=== PATIENT | male | born 1960 | race Caucasian/White ===

== ENCOUNTER 2022-01-12 12:15 | Emergency (ER) | payer MEDICARE, SELFPAY ==
--- NOTE | ~2022-01-12 | XR_ITS ---
EXAMINATION: XR CHEST CLINICAL INFORMATION: Dyspnea COMPARISON: None TECHNIQUE: Frontal view of the chest was obtained. FINDINGS: The cardiac and mediastinal contours are normal. There is subsegmental atelectasis at the left lung base. The lungs are otherwise clear. There is no pleural effusion or pneumothorax. There are degenerative changes of the spine. XR/XR chest 1V IMPRESSION: Subsegmental atelectasis at the left lung base.
[2022-01-12 12:20] VITALS: BP 117/66; PULSE 62; RESP 20; TEMP 36.7; O2SAT 94; BMI 39.5
--- NOTE | 2022-01-12 12:23 | ECG_ITS ---
Test Reason : SOB Blood Pressure : / mmHG Vent. Rate : 061 BPM Atrial Rate : 061 BPM P-R Int : 158 ms QRS Dur : 086 ms QT Int : 430 ms P-R-T Axes : 052 -20 028 degrees QTc Int : 432 ms Normal sinus rhythm Normal ECG When compared with ECG of 15-DEC-2018 10:06, ST no longer depressed in Anterior leads Nonspecific T wave abnormality no longer evident in Anterior leads Referred By: Generic ED Physician Electronically Signed By:HOMERO ALEJO MD
[2022-01-12 12:54] LABS: MANUAL DIFF FLAG NO
[2022-01-12 12:56] LABS: Basophils Percent Auto 0.4 % (0-2); Eosinophils Absolute Auto 0.3 X10*3/uL (0.0-0.4); Eosinophils Percent Auto 4.9 % (0-4); Hematocrit 36.9 % (42.0-52.0); Hemoglobin 12.4 g/dl (14.0-18.0); Imm Gran Abs Auto 0.02 X10*3/uL (0.00-0.03); Imm Gran Pct Auto 0.3 % (0.0-0.4); Lymphocytes Absolute Auto 0.9 X10*3/uL (1.2-4.9); Lymphocytes Percent Auto 13.3 % (20-40); Mean Corpuscular HGB Conc 33.6 g/dl (31.0-36.0); Mean Corpuscular Volume 95.1 fL (80.0-98.0); Mean Platelet Volume 8.3 fL (9.4-12.4); Monocytes Absolute Auto 0.7 X10*3/uL (0.1-1.2); Monocytes Percent Auto 9.9 % (2-11); Neutrophils Percent Auto 71.2 % (45-73); Platelet Count 218 X10*3/uL (160-400); Red Blood Count 3.88 X10*6/uL (4.60-5.80); Red Cell Distribution Width 13.2 % (11.0-16.0)
[2022-01-12 13:10] LABS: Anion Gap 17 (12-20); Blood Urea Nitrogen 20 mg/dL (9-16); Calcium 8.8 mg/dL (8.4-10.2); Carbon Dioxide 26 mmol/L (22-29); Chloride 101 mmol/L (96-108); Creatinine Clr Calc Pharmacy 60.6; Estimated Glomerular Filt Rate 38; Glucose Random 111 mg/dL (60-115); Potassium 4.5 mmol/L (3.3-5.1); Sodium 139 mmol/L (135-145)
[2022-01-12 13:18] LABS: B Type Natriuretic Peptide 10 pg/mL (<100); Troponin-I High Sensitivity < 3.5 ng/L (<3.5-35.0)
[2022-01-12 13:31] VITALS: BP 104/76; PULSE 60; RESP 18; TEMP 36.6; O2SAT 94
[2022-01-12 21:12] VITALS: BP 138/75; PULSE 63; RESP 18; TEMP 36.7; O2SAT 96
== END 2022-01-12 21:55 | disposition left against medical advice (07) ==
PROVIDERS: Emergency Provider Emergency Medicine
DX: R06.02 Shortness of breath (principal); R07.89 Other chest pain; Z79.899 Other long term (current) drug therapy
CPT/HCPCS: 36415; 71045; 80048; 83880; 84484; 85025; 93005; 99283; 99284

== ENCOUNTER 2022-01-12 13:00 | Outpatient (REF) | payer MEDICARE, SELFPAY | END 2022-01-12 13:01 | disposition home or self-care (01) | LOC: HO.HOSX 13:00 | PROVIDERS: Visit Provider Orthopaedic Surgery | DX: Z13.89 Encounter for screening for other disorder (principal) ==

== ENCOUNTER 2022-01-15 | Outpatient (REF) | payer OTHER, SELFPAY ==
--- NOTE | ~2022-01-15 | XR_ITS ---
EXAMINATION: KNEE X-RAY CLINICAL INFORMATION: Pain COMPARISON: Previous x-ray most recent March 2019 TECHNIQUE: Standing AP view of both knees and lateral and sunrise view of the right knee FINDINGS: Right: There has been revision of the right knee replacement. No fracture, dislocation or x-ray evidence of loosening is seen. There is increased cortical thickening or periosteal reaction adjacent to the anterior distal femoral shaft. There is no significant joint effusion. Standing AP view of the left knee demonstrates varus angulation and arthritis at the medial femoral tibial joint. XR/XR knee standing BI IMPRESSION: Right: New knee replacement. New periosteal reaction or cortical thickening of the anterior distal femoral shaft. Left: Varus angulation and arthritis at the medial femoral tibial joint.
--- NOTE | ~2022-01-15 | XR_ITS ---
EXAMINATION: KNEE X-RAY CLINICAL INFORMATION: Pain COMPARISON: Previous x-ray most recent March 2019 TECHNIQUE: Standing AP view of both knees and lateral and sunrise view of the right knee FINDINGS: Right: There has been revision of the right knee replacement. No fracture, dislocation or x-ray evidence of loosening is seen. There is increased cortical thickening or periosteal reaction adjacent to the anterior distal femoral shaft. There is no significant joint effusion. Standing AP view of the left knee demonstrates varus angulation and arthritis at the medial femoral tibial joint. XR/XR knee RT 2V IMPRESSION: Right: New knee replacement. New periosteal reaction or cortical thickening of the anterior distal femoral shaft. Left: Varus angulation and arthritis at the medial femoral tibial joint.
== END 2022-01-15 00:01 | disposition home or self-care (01) ==
LOC: HO.HOSX
PROVIDERS: Visit Provider Orthopaedic Surgery
DX: M25.561 Pain in right knee (principal)
CPT/HCPCS: 73560; 73565

== ENCOUNTER → 2022-01-26 13:07 | Outpatient (BNVA) | payer OTHER, SELFPAY | PROVIDERS: PCP Nurse Practitioner Family; Visit Provider Nurse Practitioner Psychiatric/Mental Health | DX: F11.20 Opioid dependence, uncomplicated (principal); Z51.81 Encounter for therapeutic drug level monitoring; Z79.899 Other long term (current) drug therapy | CPT/HCPCS: 80305 ==

== ENCOUNTER → 2022-02-02 12:59 | Outpatient (BNVA) | payer MEDICARE, SELFPAY | PROVIDERS: PCP Nurse Practitioner Family; Visit Provider Nurse Practitioner Psychiatric/Mental Health | DX: F11.20 Opioid dependence, uncomplicated (principal); Z51.81 Encounter for therapeutic drug level monitoring | CPT/HCPCS: 80305; 99212 ==

== ENCOUNTER 2022-02-08 06:04 | Outpatient (REF) | payer MEDICARE, SELFPAY ==
--- NOTE | ~2022-02-08 | XR_ITS ---
EXAMINATION: XR SHOULDER, RIGHT CLINICAL INFORMATION: Right shoulder pain. COMPARISON: None TECHNIQUE: Three views of the right shoulder. FINDINGS: Mild degenerative joint changes are seen. There is no acute fracture or dislocation. The right ribs are intact. The soft tissues are unremarkable. XR/XR shoulder RT min 2V IMPRESSION: Mild right shoulder degenerative joint changes. No acute abnormality.
== END 2022-02-08 06:05 | disposition home or self-care (01) ==
LOC: HO.HOSX 06:04
PROVIDERS: Visit Provider Physician Assistant
DX: M25.511 Pain in right shoulder (principal)
CPT/HCPCS: 20610; 73030; 99212; J1100

== ENCOUNTER → 2022-02-12 10:10 | Outpatient (BNVA) | payer MEDICARE, SELFPAY | PROVIDERS: PCP Nurse Practitioner Family; Visit Provider Internal Medicine Cardiovascular Disease | DX: I50.9 Heart failure, unspecified (principal); I48.0 Paroxysmal atrial fibrillation; R06.09 Other forms of dyspnea | CPT/HCPCS: 99202 ==

== ENCOUNTER → 2022-02-16 08:19 | Outpatient (REF) | payer MEDICARE, SELFPAY ==
--- NOTE | 2022-02-16 08:21 | CA_ITS ---
Transthoracic Echocardiogram Patient (Last, First, Middle): Yves Lowe F Gender: Male Date of : 1960 Age: 61 Procedure Date: 02/16/2022 Procedure Type: Transthoracic Echocardiogram Location: OP Height: 185.42 cm Weight: 139.26 kg BSA: 2.58 m2 Heart Rate: bpm BP: 118 / 62 mmHg Senior Materials Planner: TO Referring MD: Marco Wagner MD Varnish Dipper: Marco Wagner MD Symptoms: I50.9 - Heart failure, unspecified Study Quality: Technically Difficult/Contrast ECG Rhythm: Sinus Conclusions: - Essentially normal study Findings Procedure Information Contrast agent, definity, is being given per protocol without apparent complications. The quality of the study was technically difficult. Left Ventricle Normal left ventricular size, thickness, and systolic function. The visually estimated ejection fraction is between 60-65%. Spectral Doppler is indicative of a normal filling pattern. Right Ventricle Normal right ventricular cavity size. There is normal right ventricular systolic function. Atria Both atria are normal in size. Aortic Valve Normal aortic valve structure and function. There is no aortic valve stenosis. There is no aortic valve regurgitation. Mitral Valve Normal mitral valve structure and function. There is trace mitral valve regurgitation. There is no mitral valve stenosis. Pulmonic Valve The pulmonic valve was not well visualized. Tricuspid Valve Likely normal tricuspid valve structure and function. There is trace tricuspid valve regurgitation. The right ventricular systolic pressure is 35 mmHg. There is no evidence of pulmonary hypertension. Great Vessels All visible segments of the aorta are normal in size. The pulmonary artery was not well visualized. Venous The inferior vena cava is normal in size and collapses greater than 50% with inspiration. Pericardium/Pleural There is no evidence of pericardial effusion. Prior Study Comparison No prior study available for comparison. Measurements 2D Linear Measurements LVOT Diam: 2.40 3.0+(-)1.3 cm 2D Systolic Function EF 4C: 60.90 >55% EF 2C: 64.70 >55% EF BiP: 63.70 >55% Mitral Valve MV Pk E: 0.83 MV PK A: 0.62 MV Decel Time: 293.00 E/A: 1.30 E'Lateral: 12.60 E'Medial: 11.00 E/E' Med: 7.50 E/E' Lat: 6.60 PHT: 86.00 MVA PHT: 2.56 Decel Adams: 2.82 Aortic Valve AoV Pk Andi: 1.52 AoV Mn Andi: 1.11 AoV VTI: 0.33 AoV Pk Grad: 9.00 Aov Mn Grad: 5.00 ELIZABETH Cont.VTI: 4.13 LVOT LVOT Pk Andi: 1.26 LVOT Mn Andi: 0.83 LVOT VTI: 0.30 LVOT Pk Grad: 6.00 LVOT Mn Grad: 3.00 LVOT Diam: 2.40 LVOT Area: 4.52 Diastolic Function MV Pk E: 0.83 MV Pk A: 0.62 E/A: 1.30 E'Medial: 11.00 E/E' Med: 7.50 E' Laterial: 12.60 E/E' Lat: 6.60 Right Ventricle TAPSE (mm): 25.90 TVS' Andi: 16.10 Tricuspid Valve TR Pk Andi: 2.81 TR Pk Grad: 32.00 RA Press: 3.00 RVSP: 35.00 Great Vessels Aorta Sinus of Valsalva: 4.54 2.0-3.5 cm Ao Asc: 3.90 2.1-3.4 cm Updated in Other Vendor System with Status of Final Stevo Hobbs MD electronically signed on 02/17/2022 11:54:22 AM with status of Final
== END ==
LOC: HO.CARD 08:19
PROVIDERS: PCP Nurse Practitioner Family; Visit Provider Internal Medicine Cardiovascular Disease
DX: I50.9 Heart failure, unspecified (principal)
CPT/HCPCS: 93306; Q9957

== ENCOUNTER 2022-02-27 10:53 | Outpatient (REF) | payer MEDICARE, SELFPAY ==
--- NOTE | ~2022-02-27 | XR_ITS ---
EXAMINATION: XR CHEST CLINICAL INFORMATION: Dyspnea COMPARISON: Previous chest x-ray most recent December 2021 TECHNIQUE: 2 views of the chest were obtained. FINDINGS: The cardiac and mediastinal contours are stable. There is elevation or eventration of the posterior left hemidiaphragm. There is subsegmental atelectasis at the left lung base. The right lung is clear. There is no pleural effusion or pneumothorax. Mild degenerative changes of the spine. XR/XR chest 2V IMPRESSION: Slight elevation or eventration of the left hemidiaphragm and subsegmental atelectasis at the left lung base.
[2022-02-27 13:02] LABS: Alanine Aminotransferase 22 U/L (0-40); Albumin Level 4.5 g/dL (3.5-5.0); Alkaline Phosphatase 77 U/L (39-117); Anion Gap 15 (12-20); Aspartate Amino Transferase 18 U/L (5-37); Bilirubin Direct 0.2 mg/dL (0.0-0.5); Bilirubin Total 0.5 mg/dL (0.0-1.0); Blood Urea Nitrogen 24 mg/dL (9-16); Calcium 9.2 mg/dL (8.4-10.2); Carbon Dioxide 31 mmol/L (22-29); Chloride 96 mmol/L (96-108); Estimated Glomerular Filt Rate 46; Glucose Random 105 mg/dL (60-115); Potassium 4.8 mmol/L (3.3-5.1); Sodium 137 mmol/L (135-145); Total Protein 7.4 g/dL (6.5-8.0)
[2022-02-27 13:28] LABS: HBS Num1 114.45 mIU/mL (0-7.99); HBc Num1 0.07 S/CO (0.00-0.79); HBsAGNum1 0.27 S/CO (0.00-0.99); Hepatitis B Core Antibody Nonreactive (Nonreactive); Hepatitis B Surface Antigen Negative (Negative); ~HepC Num1 0.13 S/CO (0.00-0.79); ~Hepatitis B Surface Antibody REACTIVE (Nonreactive); ~Hepatitis C Antibody Nonreactive (Nonreactive)
[2022-02-28 08:32] LABS: Hepatitis A Antibody IgM 0.15 Index (0-0.79); ~Hepatitis A Antibody IgM Nonreactive (Nonreactive)
[2022-03-01 10:34] LABS: NT-proBNP 37 pg/mL
== END 2022-02-27 10:54 | disposition home or self-care (01) ==
LOC: HO.XRAY 10:53
PROVIDERS: Nurse Practitioner Psychiatric/Mental Health; PCP Nurse Practitioner Family; Visit Provider Internal Medicine Cardiovascular Disease
DX: F11.20 Opioid dependence, uncomplicated (principal); R06.09 Other forms of dyspnea; Z79.899 Other long term (current) drug therapy
CPT/HCPCS: 36415; 71046; 80048; 80076; 83880; 86704; 86706; 86709; 86803; 87340; 99212

== ENCOUNTER 2022-03-13 08:53 | Outpatient (REF) | payer MEDICARE, SELFPAY ==
--- NOTE | 2022-03-13 11:16 | PFT_ITS ---
INDICATION: Dyspnea. SPIROMETRY: FEV1 to FVC 77% with an FEV1 of 1.97 L, which is 50% predicted, an FVC of 2.55 L, which is 49% predicted. There was a trend response to bronchodilators noted. The [id number] was decreased to 61% predicted. Maximum voluntary ventilation is 56% predicted. LUNG VOLUMES: Total lung capacity 58% predicted with an expiratory reserve volume of 21% predicted. DIFFUSION CAPACITY: DLCO 60% predicted with a DLCO VA of 102% predicted. COMPARISONS: None. INTERPRETATION: No obstructive ventilatory defect. No significant response to bronchodilators noted. There is some evidence of small airways disease likely secondary to the body habitus. Lung volumes do demonstrate a restrictive ventilatory defect consistent with moderate restrictive lung disease. Need to consider underlying parenchymal lung conditions, although his expiratory reserve volume is significantly decreased suggesting of hypo-expansion due to his body habitus and his elevated BMI. There is a moderate diffusion impairment, otherwise completely corrects to normal when correcting for the alveolar volume. Clinical correlation warranted. MD MEME Granados/FARHAN / [id number]
== END 2022-03-13 08:54 | disposition home or self-care (01) ==
LOC: HO.RESP 08:53
PROVIDERS: Visit Provider Internal Medicine Cardiovascular Disease
DX: R06.09 Other forms of dyspnea (principal); F11.20 Opioid dependence, uncomplicated; Z51.81 Encounter for therapeutic drug level monitoring; Z79.899 Other long term (current) drug therapy
CPT/HCPCS: 80305; 94060; 94727; 94729; 99212

== ENCOUNTER → 2022-03-30 13:22 | Outpatient (BNVA) | payer MEDICARE, SELFPAY | PROVIDERS: PCP Nurse Practitioner Family; Visit Provider Nurse Practitioner Psychiatric/Mental Health | DX: Z51.81 Encounter for therapeutic drug level monitoring (principal); F11.20 Opioid dependence, uncomplicated | CPT/HCPCS: 80305; 99212 ==

== ENCOUNTER → 2022-04-18 13:21 | Outpatient (BNVA) | payer MEDICARE, SELFPAY | PROVIDERS: PCP Nurse Practitioner Family; Visit Provider Nurse Practitioner Psychiatric/Mental Health | DX: F11.20 Opioid dependence, uncomplicated (principal) | CPT/HCPCS: 99212 ==

== ENCOUNTER → 2022-04-19 15:11 | Outpatient (BNVA) | payer MEDICARE, SELFPAY | PROVIDERS: PCP Nurse Practitioner Family; Visit Provider Internal Medicine | DX: R09.02 Hypoxemia (principal); J98.4 Other disorders of lung; E66.01 Morbid (severe) obesity due to excess calories; I50.9 Heart failure, unspecified | CPT/HCPCS: 94618; 99202 ==

== ENCOUNTER → 2022-05-14 12:29 | Outpatient (BNVA) | payer MEDICARE, SELFPAY | PROVIDERS: PCP Nurse Practitioner Family; Visit Provider Physician Assistant | DX: E66.9 Obesity, unspecified (principal); I50.9 Heart failure, unspecified; I48.0 Paroxysmal atrial fibrillation; J98.4 Other disorders of lung; F11.20 Opioid dependence, uncomplicated; Z68.38 Body mass index [BMI] 38.0-38.9, adult | CPT/HCPCS: 99202 ==

== ENCOUNTER → 2022-05-16 15:51 | Outpatient (REF) | payer MEDICARE, SELFPAY | LOC: HO.SL 15:51 | PROVIDERS: PCP Nurse Practitioner Family; Visit Provider Internal Medicine | DX: G47.33 Obstructive sleep apnea (adult) (pediatric) (principal); E66.01 Morbid (severe) obesity due to excess calories | CPT/HCPCS: 95806 ==

== ENCOUNTER → 2022-05-17 15:15 | Outpatient (BNVA) | payer MEDICARE, SELFPAY | PROVIDERS: PCP Nurse Practitioner Family; Visit Provider Nurse Practitioner Psychiatric/Mental Health | DX: F11.20 Opioid dependence, uncomplicated (principal) | CPT/HCPCS: 99212 ==

== ENCOUNTER → 2022-06-04 09:47 | Outpatient (BNVA) | payer MEDICARE, SELFPAY | PROVIDERS: PCP Nurse Practitioner Family; Visit Provider Internal Medicine | DX: J45.909 Unspecified asthma, uncomplicated (principal); J98.4 Other disorders of lung; G47.33 Obstructive sleep apnea (adult) (pediatric); G47.34 Idiopathic sleep related nonobstructive alveolar hypoventilation; E66.01 Morbid (severe) obesity due to excess calories; Z68.38 Body mass index [BMI] 38.0-38.9, adult | CPT/HCPCS: 99212 ==

== ENCOUNTER → 2022-06-22 10:35 | Outpatient (BNVA) | payer MEDICARE, SELFPAY | PROVIDERS: PCP Nurse Practitioner Family; Visit Provider Orthopaedic Surgery | DX: R53.81 Other malaise (principal); E66.9 Obesity, unspecified; Z96.651 Presence of right artificial knee joint; Z68.38 Body mass index [BMI] 38.0-38.9, adult | CPT/HCPCS: 99212 ==

== ENCOUNTER → 2022-06-25 13:22 | Outpatient (BNVA) | payer MEDICARE, SELFPAY | PROVIDERS: PCP Nurse Practitioner Family; Visit Provider Internal Medicine Cardiovascular Disease | DX: I50.9 Heart failure, unspecified (principal); R53.81 Other malaise; R06.09 Other forms of dyspnea | CPT/HCPCS: 99212 ==

== ENCOUNTER → 2022-07-12 14:58 | Outpatient (BNVA) | payer MEDICARE, SELFPAY | PROVIDERS: PCP Nurse Practitioner Family | DX: Z79.891 Long term (current) use of opiate analgesic (principal) | CPT/HCPCS: 80305 ==

== ENCOUNTER → 2022-07-31 09:30 | Outpatient (BNVA) | payer MEDICARE, SELFPAY | PROVIDERS: PCP Nurse Practitioner Family; Visit Provider Internal Medicine | DX: G47.33 Obstructive sleep apnea (adult) (pediatric) (principal); G47.34 Idiopathic sleep related nonobstructive alveolar hypoventilation; J45.909 Unspecified asthma, uncomplicated; J98.4 Other disorders of lung; E66.01 Morbid (severe) obesity due to excess calories; Z68.38 Body mass index [BMI] 38.0-38.9, adult | CPT/HCPCS: 99212 ==

== ENCOUNTER 2022-08-01 10:00 | Outpatient (RCR) | payer MEDICARE, SELFPAY ==
--- NOTE | 2022-06-15 10:58 | MHC.PT.EP ---
[facility] [place] Office [place] Office [place] Office [address] Edie Ayon [address] [phone] F: [phone] F: [phone] F: [phone] F: [phone] Physical Therapy Plan of Care Date of Evaluation: Date of Surgery: Diagnosis: physical deconditioning, hx of R knee replacement (RC) Assessment: pt is a 61 y/o male presenting to physical therapy w/ referring diagnosis of physical deconditioning, hx of R total knee replacement. Impairments include pain, decreased range of motion, decreased strength, impaired functional mobility, impaired postural awareness, and altered ambulation mechanics. pt is a fair candidate for skilled PT due to age, potential remediation of impairments, typical disease/condition progression and prognosis, comorbidities, and motivation. pt would benefit from skilled PT intervention to provide a tailored strengthening and stretching exercise program, functional training, gait training, postural re-training, neuromuscular re-education, modalities as needed for pain, equipment safety demonstration. Frequency and Duration: The patient will be seen 2x/wk for 5 wks Short Term Goals: pt will be I w/ HEP to promote self-management of condition. pt will improve B knee extension to 0 degrees to promote ease in sit to stand transfers. Mcc Goals: pt will report a statistically significant improvement in self-reported outcome measure, LEFI, to promote return to PLOF. pt will ascend/descend 4 stairs w/ railing in reciprocal pattern to promote ease in accessing primary living spaces. Treatment Plan: Modalities to reduce pain, spasms and effusion. Manual therapy to restore motion and function. Therapeutic exercise to improve strength and flexibility. Neuromuscular re-education for posture and balance. Therapeutic activities to return to functional activities of daily living. Electronically signed by: Nedra Foster PT, DPT Please sign and return to therapist. Thank you for your referral.
--- NOTE | 2022-09-03 11:43 | MHC.PT.DC ---
[facility] [place] Office [place] Office [place] Office [address] Edie Ayon [address] [phone] F: [phone] F: [phone] F: [phone] F: [phone] Physical Therapy Discharge Report Diagnosis: physical deconditioning, hx of R knee replacement (RC) Date of Surgery: Date of Evaluation: 06/15/22 Date of Discharge: 09/03/22 Treatments to Date: 12 Cancellations to Date: 2 No Shows to Date: 1 Discharge Status: Visit Non-compliance Discharge Summary: The patient no showed his last scheduled appointment and has not followed-up with any additional visits in approximately one month. At the time of his last appointment he was still struggling to maintain full range of motion. He was achieving anywhere between 105-115* of flexion. His overall deconditioning made it difficult to progress him in physical therapy. He is discharged from this physical therapy plan of care. Electronically signed by: Nedra Myers PT, DPT Please sign and return to therapist. Thank you for your referral.
== END 2022-09-03 11:43 | disposition home or self-care (01) ==
LOC: HO.PT 10:00
PROVIDERS: Visit Provider Orthopaedic Surgery
DX: I50.9 Heart failure, unspecified (principal); E66.9 Obesity, unspecified; R53.81 Other malaise; Z96.651 Presence of right artificial knee joint
CPT/HCPCS: 97110; 97140; 97162; 97530

== ENCOUNTER → 2022-09-06 15:26 | Outpatient (BNVA) | payer MEDICARE, SELFPAY | PROVIDERS: PCP Nurse Practitioner Family; Visit Provider Nurse Practitioner Psychiatric/Mental Health | DX: Z51.81 Encounter for therapeutic drug level monitoring (principal); F11.20 Opioid dependence, uncomplicated | CPT/HCPCS: 80305; 99212 ==

== ENCOUNTER → 2022-10-04 09:49 | Outpatient (BNVA) | payer MEDICARE, SELFPAY | PROVIDERS: PCP Nurse Practitioner Family; Visit Provider Internal Medicine | DX: J98.4 Other disorders of lung (principal); G47.33 Obstructive sleep apnea (adult) (pediatric); G47.34 Idiopathic sleep related nonobstructive alveolar hypoventilation; E66.01 Morbid (severe) obesity due to excess calories; Z68.36 Body mass index [BMI] 36.0-36.9, adult | CPT/HCPCS: 99212 ==

== ENCOUNTER 2022-10-22 12:10 | Outpatient (REF) | payer MEDICARE, SELFPAY | END 2022-10-22 12:11 | disposition home or self-care (01) | LOC: HO.HOSX 12:10 | PROVIDERS: Visit Provider Orthopaedic Surgery | DX: Z13.89 Encounter for screening for other disorder (principal) ==

== ENCOUNTER 2022-11-01 13:20 | Outpatient (AMB) | payer MEDICARE, SELFPAY ==
--- NOTE | 2022-11-01 13:20 | MHC.OFFVIS ---
Intake Vital Signs 11/01/22 13:26 BP 108/70 Blood Pressure Location Lt radial Position Sitting Pulse 74 Pulse Source Pulse Oximeter Pulse Oximetry (%) 98 Oxygen Delivery Method Room Air Intake Visit Reasons: MAT VISIT Intake Note: The patient presents for a mat visit Allergies No Known Allergies [No Known Allergies*] Allergy (Verified 11/01/22 13:27) Do you need a note to return to daycare/school/sports/work: No HPI MAT VISIT HPI Details Patient presents for follow up Currently prescribed Suboxone 2mg BID Tolerating current dose, no side effects reported Patient states he will be moving back to [place] in the next month or so. He is excited to return to his life there. [facility], [facility] Medical History Asthma Exercise hypoxemia Morbid obesity Nocturnal hypoxemia DAVID (obstructive sleep apnea) Restrictive lung disease Surgical History History of hip surgery History of total right knee replacement Family History Mother Emphysema lung Father Diabetes Social History Alcohol intake: never Patient Tobacco Use Status: Never used Tobacco e-Cigarette/Vaping Use: Currently Using Current occupational status: retired Review of Systems Const Reports as per HPI Physical Exam Vital Signs: Last Vital Signs Pulse 74 11/01/22 13:26 BP 108/70 11/01/22 13:26 Pulse Ox 98 11/01/22 13:26 Oxygen Delivery Method Room Air 11/01/22 13:26 Const General: cooperative, healthy appearing, comfortable and no acute distress Nutritional Appearance: overweight Orientation/consciousness: patient oriented x3 Limitations: no limitations Neuro General: patient oriented x3 Assessment & Plan Assessment & Plan (1) Opioid dependence: Code(s): F11.20 - Opioid dependence, uncomplicated Plan: continue suboxone at current dose no follow up appt at this time encouraged to call office shoudl he need assitance with transferring care Medications: Changed From buprenorphine-naloxone 2-0.5 mg (Suboxone) place 1 strip/tab under (each) side of tongue 1 film sublingual BID 60 ea 1RF To buprenorphine-naloxone 2-0.5 mg (Suboxone) 1 film sublingual BID 60 ea 1RF Coding Level of Care Code Est Pt Level 3 (43486) Diagnoses Opioid dependence F11.20
[2022-11-01 13:26] VITALS: BP 108/70; PULSE 74; O2SAT 98
== END 2022-11-01 13:50 | disposition home or self-care (01) ==
LOC: HO.HCC 13:20
PROVIDERS: PCP Nurse Practitioner Family; Visit Provider Nurse Practitioner Psychiatric/Mental Health
DX: F11.20 Opioid dependence, uncomplicated (principal)
CPT/HCPCS: 99213

== ENCOUNTER → 2022-11-01 13:20 | Outpatient (BNVA) | payer MEDICARE, SELFPAY | PROVIDERS: PCP Nurse Practitioner Family; Visit Provider Nurse Practitioner Psychiatric/Mental Health | DX: F11.20 Opioid dependence, uncomplicated (principal) | CPT/HCPCS: 99212 ==

== ENCOUNTER 2022-11-21 10:00 | Outpatient (RCR) | payer MEDICARE, SELFPAY ==
--- NOTE | 2022-11-15 14:01 | MHC.PT.EP ---
[facility] [place] Office [place] Office [place] Office [address] [phone] F: [phone] F: [phone] F: [phone] F: [phone] Physical Therapy Plan of Care Date of Evaluation: Date of Surgery: 2 years ago. Diagnosis: R TKA Assessment: Patient is a 62 year old R handed male who presents with s/s consistent with TKA and R knee pain. He no longer works and lives down in [place] most of the time. Patient past medical history includes TKA with infection, CHF, opioid dependence. Current impairments include pain, posture, ROM, flexibility, strength, activity tolerance and functional mobility. Functional limitations include decreased ability to drive, maintain prolonged positions, walk, stand, and squat. Patient is motivated with good rehab potential. Skilled PT will address impairments and functional limitations in order to achieve goals. Frequency and Duration: The patient will be seen 3x/week for 2 weeks Short Term Goals: I with HEP - 2 weeks AAROM flexion to 120, ext to 8 - 2 weeks mid patellar circumference 50cm - 2 weeks [employer] Goals: Pt leaving in 13 days for [place]. Treatment Plan: Modalities to reduce pain, spasms and effusion. Manual therapy to restore motion and function. Therapeutic exercise to improve strength and flexibility. Neuromuscular re-education for posture and balance. Therapeutic activities to return to functional activities of daily living. Electronically signed by: Messi Moncada, PT Please sign and return to therapist. Thank you for your referral.
--- NOTE | 2023-04-16 14:25 | MHC.PT.DC ---
[facility] [place] Office [place] Office [place] Office [address] Edie Ayon [address] [phone] F: [phone] F: [phone] F: [phone] F: [phone] Physical Therapy Discharge Report Diagnosis: R TKA Date of Surgery: 2 years ago. Date of Evaluation: 11/15/22 Date of Discharge: 01/16/23 Treatments to Date: 3 Cancellations to Date: No Shows to Date: Discharge Status: Patient Elected to Stop Discharge Summary: Pt elected to stop PT after last visit. 11/21/22: pt happy with progress so far. AAROm flexion to 111 today. 11/19/22: continued to address girth measurements, added IASTM. 51.5 cm today. continue to measure each visit. Patient is a 62 year old R handed male who presents with s/s consistent with TKA and R knee pain. He no longer works and lives down in [place] most of the time. Patient past medical history includes TKA with infection, CHF, opioid dependence. Current impairments include pain, posture, ROM, flexibility, strength, activity tolerance and functional mobility. Functional limitations include decreased ability to drive, maintain prolonged positions, walk, stand, and squat. Patient is motivated with good rehab potential. Skilled PT will address impairments and functional limitations in order to achieve goals. Electronically signed by: Messi Moncada, PT Please sign and return to therapist. Thank you for your referral.
== END 2023-04-16 14:26 | disposition home or self-care (01) ==
LOC: HO.PTCHIC 10:00
PROVIDERS: PCP Nurse Practitioner Family; Visit Provider Orthopaedic Surgery
DX: Z96.651 Presence of right artificial knee joint (principal)
CPT/HCPCS: 97110; 97140; 97163